=== PATIENT | female | born 1985 | race Two or more races ===

== ENCOUNTER → 2017-05-09 | Outpatient (REF) | payer MEDICARE, OTHER | LOC: M SFHCPLAZ 10:07 | DX: Z86.39 Personal history of other endocrine, nutritional and metabolic disease (principal) ==

== ENCOUNTER → 2017-11-18 | Outpatient (REF) | payer MEDICARE, OTHER ==
[2017-11-18 16:34] LABS: FREE T4 1.03 NG/DL (0.76-1.46); THYROID STIMULATING HORMONE 0.381 uIU/ML (0.358-3.740)
== END ==
LOC: M SFHCPLAZ 11:27
DX: Z86.39 Personal history of other endocrine, nutritional and metabolic disease (principal)
CPT/HCPCS: 84443

== ENCOUNTER → 2017-12-18 | Outpatient (REF) | payer MEDICARE, OTHER | LOC: M SFHCPLAZ 12:16 | DX: J02.9 Acute pharyngitis, unspecified (principal) ==

== ENCOUNTER → 2018-02-26 | Outpatient (REF) | LOC: M SMT 13:33 | DX: Z02.71 Encounter for disability determination (principal) ==

== ENCOUNTER → 2018-10-17 | Outpatient (REF) | payer OTHER, MEDICARE ==
[2018-10-20 11:48] LABS: HEPATITIS C VIRUS ABY INDEX 0.1 INDEX (<0.8); HIV 1&2 SCREEN CENTAUR NEGATIVE (NEGATIVE); RUBELLA IgG QUALITATIVE IMMUNE (IMMUNE)
== END ==
LOC: M LAB REF 16:46
PROVIDERS: ATTEND Obstetrics & Gynecology
DX: Z34.81 Encounter for supervision of other normal pregnancy, first trimester (principal); Z3A.00 Weeks of gestation of pregnancy not specified

== ENCOUNTER → 2019-02-27 | Outpatient (CLI) | payer OTHER ==
[2019-02-27 15:07] LABS: HEMATOCRIT 35.8 % (36.0-47.0); HEMOGLOBIN 11.8 g/dl (12.0-15.5); MEAN CORPUSCULAR HEMOGLOBIN 31.8 pg (27.0-33.0); MEAN CORPUSCULAR VOLUME 96.5 fl (80.0-96.0); PLATELET COUNT, AUTOMATED 164 10^3/uL (150-450); RED BLOOD COUNT 3.71 10^6/uL (4.00-5.40); WHITE BLOOD COUNT 7.7 10^3/uL (4.0-10.0)
== END ==
LOC: M LAB 13:16
PROVIDERS: ATTEND Obstetrics & Gynecology
DX: Z34.82 Encounter for supervision of other normal pregnancy, second trimester (principal)

== ENCOUNTER 2019-04-03 20:05 | Outpatient (CLI) | payer OTHER ==
[2019-04-03 20:31] VITALS: BP 112/70
--- NOTE | 2019-04-03 21:52 | IPN ---
DATE: 04/03/2019 A 33-year-old G3, P2 female at 33-6/7 weeks gestation presents with nausea and diarrhea for two days. She has been able to keep down liquids without problems. She has felt some cramping and occasional contractions. Contractions became sporadic. She has a history of advanced cervical dilation so was concerned and came in for evaluation and triage. OBJECTIVE: Afebrile. Vital signs stable. There is no apparent distress. HEAD AND NECK EXAM: Normal. ABDOMEN: Nontender. Gravid. STERILE VAGINAL EXAM: 2-3 cm, 70%, -2, posterior, moderate consistency, vertex. CONTRACTIONS: None. ASSESSMENT: A 33-year-old G3, P2 at 33-6/7 weeks presents with nausea and diarrhea. Recommend oral hydration and bedrest. Patient will follow up with Dr. Fontana as scheduled next week. She will return for worsening pain.
== END 2019-04-03 21:16 | disposition home or self-care (01) ==
LOC: M LDO 20:05
PROVIDERS: ATTEND Obstetrics & Gynecology
DX: O26.893 Other specified pregnancy related conditions, third trimester (principal); R11.0 Nausea; R19.7 Diarrhea, unspecified; O47.03 False labor before 37 completed weeks of gestation, third trimester; Z3A.33 33 weeks gestation of pregnancy
CPT/HCPCS: 59025; G0378; G0463

== ENCOUNTER 2019-04-09 13:45 | Inpatient (IN) | payer MEDICARE, OTHER ==
[~2019-04-09] VITALS: Ht 172.7 cm; Wt 75.0 kg
[2019-04-09] VITALS (9 sets, daily range): BP systolic 96–116; BP diastolic 50–70
[2019-04-09] MEDS ORDERED: LACTATED RINGER'S 1000 ML IV STA (15:01)
[2019-04-09] MEDS: LR 1,000 ML IV SCH ×2 (15:01→18:07)
[2019-04-09 15:38] LABS: BASO % 0.2 % (0.0-1.0); HEMATOCRIT 36.2 % (36.0-47.0); HEMOGLOBIN 11.6 g/dl (12.0-15.5); LYMPH # 0.9 10^3/uL (1.5-5.0); LYMPH % 7.8 % (24.0-44.0); MEAN CORPUSCULAR HEMOGLOBIN 30.3 pg (27.0-33.0); MEAN CORPUSCULAR VOLUME 94.5 fl (80.0-96.0); MONO # 0.3 10^3/uL (0.0-0.8); MONO % 2.6 % (0.0-5.0); NEUTROPHILS # 10.5 10^3/uL (1.5-8.5); NEUTROPHILS % 88.3 % (36.0-66.0); PLATELET COUNT, AUTOMATED 163 10^3/uL (150-450); RED BLOOD COUNT 3.83 10^6/uL (4.00-5.40); WHITE BLOOD COUNT 11.9 10^3/uL (4.0-10.0)
[2019-04-09] MEDS ORDERED: BETAMETHASONE SOLUSPAN 6MG/ML INJ 5ML (J0702) IM ONE (17:00)
[2019-04-09] MEDS ORDERED: BICITRA 30ML SOLN UDC PO ONE (18:00)
[2019-04-09] MEDS ORDERED: ONDANSETRON 4MG/2ML VIAL (J2405) IV ONE (18:00)
[2019-04-09] MEDS ORDERED: CLINDAMYCIN 600 MG in IV 1 EA IV SCH (18:00)
[2019-04-09] MEDS ORDERED: PRENTAB9 PO (18:01)
[2019-04-09] MEDS ORDERED: FIORCAP3 PO (18:01)
[2019-04-09] MEDS ORDERED: CLINDAMYCIN 600 MG/50 ML PREMIX BAG As Ordered ONE (18:04)
--- NOTE | 2019-04-09 19:34 | HPE ---
DATE OF ADMISSION: 04/09/2019 Sandy is a 33-year-old female 5, para 3-0-1-3 with a history of two prior sections, being admitted at 34-5/7 weeks gestation after presenting to [facility] with spontaneous rupture of membranes. She was seen and evaluated there, confirmed rupture of membrane and was then transferred to [facility] for further care. Upon evaluation, she was found to be grossly ruptured. Her record reviewed which was essentially unremarkable. lab blood type is O+, rubella immune, hepatitis negative, HIV negative, GC chlamydia negative, 1-hour sugar testing was within normal limit. Her GBS is unknown. PAST MEDICAL HISTORY: History of migraine. PAST SURGICAL HISTORY: section times three. SOCIAL HISTORY: She denies any alcohol or drug use. MEDICATION: vitamin. ALLERGIES: PENICILLIN, Prior to being transferred here, the patient did receive one dose of betamethasone, as well as a dose of clindamycin. LABORATORY UPON EVALUATION HERE: White count is 11.9, platelet of 163, hemoglobin and hematocrit of 11/36 with a neutrophil of 88 and lymphocytes of 7.8. Tracing reviewed category one tracing, contractions irregular every 4-7 minutes. Vaginal exam: 1-2 cm dilated. Cervix is soft. The fetus in vertex position, gross rupture of membranes, clear fluid. ASSESSMENT: 1. Intrauterine at 34-5/7 weeks gestation with spontaneous rupture of membranes. 2. History of prior section x3 PLAN: The patient is being admitted here in labor and delivery. She is counseled extensively, as well as her partner. The risk of premature delivery discussed, as well as being spontaneously ruptured and risk of infection. At this point, if labor does not progress, we will attempt to give the patient a second dose of steroids and then move on to the repeat section. However, she is aware that if her contraction process persists or if there is any distress, we may proceed with the section sooner. The patient is also aware of our NICU status. Will continue to monitor.
[2019-04-09] MEDS ORDERED: OXYTOCIN DRIP 30 UNITS in IV 1 EA IV SCH (20:28)
[2019-04-09] MEDS ORDERED: RHOGAM 300 MCG (1500 IU) INJ (J2790) IM SCH (20:30)
[2019-04-09] MEDS ORDERED: ONDANSETRON 4MG/2ML VIAL (J2405) IV PRN ×2 (20:30→22:00)
[2019-04-09] MEDS ORDERED: MOM 30ML SUSPENSION UDC PO PRN (20:30)
[2019-04-09] MEDS ORDERED: MEASLES,MUMPS,RUBELLA VACCINE INJ (MMR-II) (90707) SC SCH (20:30)
[2019-04-09] MEDS ORDERED: PERCOCET 5MG/325MG TAB PO PRN (20:30)
[2019-04-09] MEDS ORDERED: ACETAMINOPHEN 500 MG TAB PO PRN (20:30)
[2019-04-09] MEDS: DOCUSATE SODIUM 100 MG CAP PO SCH (21:00)
[2019-04-09 21:05] LABS: CORD GAS ABE A -4.9; CORD GAS ABE V -5.8; CORD GAS HCO3 A 20.9 MEQ/L; CORD GAS HCO3 V 18.8 MEQ/L; CORD GAS O2 SAT V 84.9 %; CORD GAS PCO2 A 41.4 mmHg; CORD GAS PCO2 V 34.1 mmHg; CORD GAS PH A 7.321 UNITS; CORD GAS PH V 7.359 UNITS; CORD GAS PO2 A 26.1 mmHg; CORD GAS PO2 V 40.7 mmHg; CORD GAS SBC A 19.8 MEQ/L; CORD GAS SBC V 19.5 MEQ/L; CORD GAS TCO2 A 22.2 MEQ/L; CORD GAS TCO2 V 19.8 MEQ/L
[2019-04-09] MEDS ORDERED: KETOROLAC 60 MG/2 ML VIAL (J1885) As Ordered ONE (21:10)
[2019-04-09] MEDS ORDERED: SUCCINYLCHOLINE 100 MG/5 ML SYRINGE (J0330) As Ordered ONE (21:10)
[2019-04-09] MEDS ORDERED: propofoL 200 MG/20 ML VIAL As Ordered ONE ×2 (21:10→21:20)
[2019-04-09] MEDS ORDERED: ACETAMINOPHEN 1000MG 100ML IV BTL (OFIRMEV) (J0131 PER 10MG) As Ordered ONE (21:10)
[2019-04-09] MEDS ORDERED: METOCLOPRAMIDE INJ 10MG/2ML VIAL (J2765) As Ordered ONE (21:10)
[2019-04-09] MEDS ORDERED: OXYTOCIN INJ 10 UNITS/ML VIAL (J2590) As Ordered ONE (21:10)
[2019-04-09] MEDS ORDERED: ONDANSETRON 4MG/2ML VIAL (J2405) As Ordered ONE (21:10)
[2019-04-09] MEDS ORDERED: dexameTHASONE 4 MG/ML 1ML VIAL (J1100) As Ordered ONE (21:10)
[2019-04-09] MEDS ORDERED: ROCURONIUM BROMIDE 50 MG/5 ML VIAL As Ordered ONE (21:10)
[2019-04-09] MEDS ORDERED: MIDAZOLAM INJ 2 MG/2 ML VIAL (J2250) As Ordered ONE (21:10)
[2019-04-09] MEDS ORDERED: fentaNYL 100 MCG/2 ML INJECTION (J3010) As Ordered ONE ×2 (21:10→21:26)
[2019-04-09] MEDS ORDERED: LIDOCAINE 2% INJ 100 MG/5 ML SDV (FOR ANES.) As Ordered ONE (21:10)
[2019-04-09] MEDS ORDERED: ePHEDrine SULFATE 25 MG/5 ML(5MG/ML) SYRINGE As Ordered ONE (21:16)
[2019-04-09] MEDS ORDERED: BUPIVACAINE HCL 0.5% 30 ML VIAL As Ordered ONE (21:18)
--- NOTE | 2019-04-09 21:48 | RO ---
DATE OF PROCEDURE: 04/09/2019 Sandy is a 33-year-old female, 4, para 3-0-0-3 with a history of two prior sections, was admitted at 34-5/7 weeks gestation with spontaneous rupture of membranes, in early labor. The patient was scheduled originally for a repeat section. Given that she is ruptured and in labor, and status post two doses of steroids, a decision was made to proceed with a repeat section. PREOPERATIVE DIAGNOSES: 1. Intrauterine at 34-5/7 weeks gestation with spontaneous rupture of membranes, in labor. 2. History of two prior sections. POSTOPERATIVE DIAGNOSES: 1. Intrauterine at 34-5/7 weeks gestation with spontaneous rupture of membranes, in labor. 2. History of two prior sections. PROCEDURE: 1. Repeat section. 2. Revision of old scar. SURGEON: Mitchel Fontana DO FRATERNITY ADVISER: Dr. Stone ANESTHESIA: General. COMPLICATIONS: None. ESTIMATED BLOOD LOSS: 600 mL. FINDINGS: Live female infant. scores 8 and 9. weight 5 pounds 4 ounces. Normal appearing tubes and ovaries. DESCRIPTION OF PROCEDURE: After obtaining informed consent, the patient was taken to the operating room where in a supine position, the Elena catheter was placed. She was then prepped and general anesthesia was then given. We then made an elliptical incision over the old scar with the help of Dr. Stone. This incision was carried down to the fascia. Fascia was incised in midline fashion and carried through laterally. Superior aspect of the fascia was then grasped with Lizeth clamps, tented off and dissected off the rectus muscles sharply. The inferior aspect was dissected off in a similar fashion. Rectus muscle in midline fashion. Peritoneum identified. Peritoneal cavity entered bluntly. Superior and inferior dissection of the peritoneum was then done with good visualization of the bladder. At this point, a Mobius skin retractor was placed, a low transverse uterine incision was made. Infant was delivered in atraumatic fashion. Nose and mouth bulb suctioned. Cord doubly clamped and cut and was handed over to the awaiting warmer. Cord blood and cord gas were sent. Placenta removed manually. Uterus cleared of all clot and debris, and the uterine incision was then repaired in two separate layers of #0 Vicryl sutures. Pelvis copiously irrigated with normal saline and suctioned out. Attention turned to the peritoneum, which was closed in a running fashion using #2-0 Vicryl suture. Fascia closed in two separate segments of #0 Vicryl sutures. All superficial bleeders were coagulated. The elliptical skin incision to the old scar was removed, all the superficial bleeders coagulated, and the skin was reapproximated in a subcuticular fashion using #3-0 Vicryl on a Chetan. Steri-Strips placed. The patient tolerated procedure well. She was then transferred to recovery room in stable condition.
[2019-04-09] MEDS ORDERED: oxyCODONE 5MG TAB As Ordered ONE ×2 (21:50→22:24)
[2019-04-09] MEDS: MORPHINE 2 MG/ML 1ML VIAL (J2270) IV PRN ×4 (21:50→22:08)
[2019-04-09] MEDS: oxyCODONE 5MG TAB PO PRN ×2 (21:50→22:25)
[2019-04-09] MEDS ORDERED: MORPHINE 10 MG/ML 1ML VIAL (J2270) As Ordered ONE (21:50)
[2019-04-09] MEDS ORDERED: OXYTOCIN 30 UNITS IN 0.9% NaCl 500ML IV BAG (J2590) As Ordered ONE (21:59)
[2019-04-09] MEDS ORDERED: fentaNYL 100 MCG/2 ML INJECTION (J3010) IV PRN (22:00)
[2019-04-09] MEDS ORDERED: LR 1,000 ML IV SCH (22:00)
[2019-04-10 01:00] VITALS: BP 111/68
[2019-04-10 02:00] VITALS: BP 111/60
[2019-04-10] MEDS: PERCOCET 5MG/325MG TAB PO PRN ×5 (02:15→22:27)
[2019-04-10] MEDS: IBUPROFEN 800 MG TAB PO PRN ×3 (02:16→18:17)
[2019-04-10 05:35] VITALS: BP 103/53
[2019-04-10 07:02] LABS: HEMATOCRIT 29.1 % (36.0-47.0); HEMOGLOBIN 9.7 g/dl (12.0-15.5); MEAN CORPUSCULAR HGB CONC 33.3 g/dl (32.0-36.5); PLATELET COUNT, AUTOMATED 169 10^3/uL (150-450); RED BLOOD COUNT 3.13 10^6/uL (4.00-5.40); WHITE BLOOD COUNT 14.9 10^3/uL (4.0-10.0)
[2019-04-10 10:00] VITALS: BP 95/56
[2019-04-10] MEDS: PRENATAL VITAMINS CHEWABLE TABLET PO SCH (10:25)
[2019-04-10] MEDS: DOCUSATE SODIUM 100 MG CAP PO SCH ×2 (10:25→19:50)
[2019-04-10 18:00] VITALS: BP 98/57
[2019-04-10 22:30] VITALS: BP 106/60
[2019-04-11 02:00] VITALS: BP 92/55
[2019-04-11] MEDS: PERCOCET 5MG/325MG TAB PO PRN ×4 (04:44→23:10)
[2019-04-11] MEDS: IBUPROFEN 800 MG TAB PO PRN ×2 (05:56→15:03)
[2019-04-11 06:00] VITALS: BP 95/56
--- NOTE | 2019-04-11 07:25 | IPNPDOC ---
Text Note Date of Service The patient was seen on 04/11/19. NOTE PO #1 Feels well. Adequate pain management. Voiding VSS, afebrile, normotensive Breasts soft Fundus firm, NT Wound clean, dry, steristrips intact, no evidence infection Lochia rubra scant without odor PO #1 Routine care. Consider discharge tomorrow. VS,Fishbone, I+O VS, Fishbone, I+O Vital Signs Date Time Temp Pulse Resp B/P (MAP) Pulse Ox O2 Delivery O2 Flow Rate FiO2 04/11/19 06:00 97.3 77 16 95/56 (69) 96 Room Air 04/09/19 22:25 2.0 l I&O- Last 24 Hours up to 6 AM 04/11/19 06:00 Intake Total 850 ml Output Total 850 ml Balance 0 ml Vivienne Livingston CNM Apr 11, 2019 07:25
[2019-04-11] MEDS: PRENATAL VITAMINS CHEWABLE TABLET PO SCH (09:46)
[2019-04-11] MEDS: DOCUSATE SODIUM 100 MG CAP PO SCH ×2 (09:46→23:10)
[2019-04-11 09:48] VITALS: BP 104/71
[2019-04-11] MEDS ORDERED: SIMETHICONE 80 MG CHEW TAB PO PRN (12:45)
[2019-04-11 14:07] VITALS: BP 107/55
[2019-04-11 18:00] VITALS: BP 114/67
[2019-04-11 23:15] VITALS: BP 108/62
[2019-04-12] MEDS: PERCOCET 5MG/325MG TAB PO PRN ×2 (05:37→12:50)
[2019-04-12 06:00] VITALS: BP 96/56
[2019-04-12] MEDS ORDERED: PERCOCET PO (09:12)
[2019-04-12] MEDS ORDERED: IBUP80TA PO (09:12)
[2019-04-12] MEDS: PRENATAL VITAMINS CHEWABLE TABLET PO SCH (09:16)
[2019-04-12] MEDS: DOCUSATE SODIUM 100 MG CAP PO SCH (09:16)
--- NOTE | 2019-04-12 09:22 | DS.PDOC ---
Discharge Summary General Date of Admission Apr 09, 2019 at 16:49 Date of Discharge 04/12/2019 Attending Physician: Mitchel Fontana DO Discharge Summary PROCEDURES PERFORMED DURING STAY: 1. General anesthesia. 2. section. ADMITTING DIAGNOSES: 1. premature rupture of membranes. DISCHARGE DIAGNOSES: 1., premature rupture of membranes at 34 weeks. COMPLICATIONS/CHIEF COMPLAINT: 34WKS, ?Srom. HISTORY OF PRESENT ILLNESS: 33-year-old 5, para 3 who presents at 34 weeks with ruptured membranes, had uncomplicated section. HOSPITAL COURSE:. Postoperatively, patient did well. At the postoperative day #3, had met all discharge criteria and was discharged home in stable condition. DISCHARGE MEDICATIONS: Please see below. ALLERGIES: Please see below. PHYSICAL EXAMINATION ON DISCHARGE: VITAL SIGNS: Please see below. GENERAL:. Well-appearing, no acute distress ABDOMINAL EXAMINATION: Appropriate tender soft, fundus below umbilicus EXTREMITIES:. Negative for calf tenderness INCISION: Approximated with Steri-Strips intact LABORATORY DATA: Please see below. ACTIVITY: Pelvic rest for 6 weeks. DIET:, Regular DISCHARGE PLAN: Discharge home. Follow up in 2 weeks for incision check DISCHARGE INSTRUCTIONS: 1. Reports severe pain, heavy vaginal bleeding or incisional issues. 2. Remain on pelvic rest 6 weeks. 3. Remove Steri-Strips in one week. DISCHARGE CONDITION: Stable. Vital Signs/I&Os Vital Signs Date Time Temp Pulse Resp B/P (MAP) Pulse Ox O2 Delivery O2 Flow Rate FiO2 04/12/19 06:37 16 04/12/19 06:00 97.5 67 96/56 (69) 96 Room Air 04/09/19 22:25 2.0 Discharge Medications Scheduled No.137/Iron/Folic Acd ( Vitamin Tablet) 1 Each Tablet, 1 TAB PO DAILY, (Reported) Scheduled PRN Butalbital/Aspirin/Caffeine (Fiorinal 50-325-40 mg Capsule) 1 Each Capsule, 1 CAP PO PRN PRN for MIGRAINE, (Reported) Ibuprofen (Ibuprofen) 800 Mg Tablet, 800 MG PO Q8HP PRN for PAIN LEVEL 6-10 Oxycodone/Acetaminophen (Oxycodone-Acetaminophen 5-325) 1 Each Tablet, 1-2 TAB PO Q6H PRN for SEVERE PAIN (PS 8-10) Allergies Coded Allergies: Penicillins (Verified Allergy, Severe, ANAPHYLAXIS, 04/09/19) HAVEN KINGSLEY MD. Apr 12, 2019 09:22
[2019-04-12] MEDS: IBUPROFEN 800 MG TAB PO PRN (09:36)
== END 2019-04-12 13:15 | disposition home or self-care (01) | DRG 786 ==
LOC: M LDO 13:45 → M LDI 16:49 → M OBS 04-10 01:00
PROVIDERS: ADMIT Obstetrics & Gynecology; ATTEND Obstetrics & Gynecology
PROC: 0HB7XZZ Excision of Abdomen Skin, External Approach (ICD-10-PCS; 2019-04-09)
PROC: 10D00Z1 Extraction of Products of Conception, Low, Open Approach (ICD-10-PCS; principal; 2019-04-09 21:13)
DX: O42.013 Preterm premature rupture of membranes, onset of labor within 24 hours of rupture, third trimester (principal); O60.14X0 Preterm labor third trimester with preterm delivery third trimester, not applicable or unspecified; Z37.0 Single live birth; Z3A.34 34 weeks gestation of pregnancy; O34.211 Maternal care for low transverse scar from previous cesarean delivery

== ENCOUNTER → 2019-08-11 | Outpatient (REF) | payer OTHER ==
[~2019-08-11] MED LIST: FIORCAP3 PO; IBUP80TA PO; PERCOCET PO; PRENTAB9 PO
[2019-08-11 14:30] LABS: HEMATOCRIT 43.1 % (36.0-47.0); HEMOGLOBIN 13.8 g/dl (12.0-15.5); MEAN CORPUSCULAR HEMOGLOBIN 29.3 pg (27.0-33.0); MEAN CORPUSCULAR VOLUME 91.5 fl (80.0-96.0); PLATELET COUNT, AUTOMATED 199 10^3/uL (150-450); RED BLOOD COUNT 4.71 10^6/uL (4.00-5.40); WHITE BLOOD COUNT 5.6 10^3/uL (4.0-10.0)
[2019-08-11 14:34] LABS: PERCENT SATURATION 60.1 % (13.2-45.0)
[2019-08-13 08:06] LABS: TRAMADOL, URINE Positive (Cutoff=200); TRAMADOL, URINE (GC/MS) >5000 ng/mL (Cutoff=100)
== END ==
LOC: M PLALAB 10:28
PROVIDERS: ATTEND Family Medicine
DX: D50.8 Other iron deficiency anemias (principal)

== ENCOUNTER → 2020-07-05 | Outpatient (REF) | payer OTHER | LOC: M SFHCPLAZ 13:35 | PROVIDERS: ATTEND Physician Assistant | DX: R30.0 Dysuria (principal) ==